=== PATIENT | female | born 1960 | race Caucasian/White ===

== ENCOUNTER 2017-08-31 10:10 | Inpatient (IN) | payer BC ==
[2017-08-31] VITALS (9 sets, daily range): BP systolic 105–131; BP diastolic 59–83
[~2017-08-31] VITALS: Ht 167.6 cm; Wt 66.2 kg
[~2017-08-31 10:10] MED LIST: NKM
--- NOTE | 2017-08-31 10:26 | Emergency Room Report ---
History of Present Illness General Chief Complaint: Generalized Weakness Source: Patient, Family Member Present Illness HPI Patient is a a 57-year-old female who presented after increased generalized weakness. Patient had been noted to have a loss of consciousness associated with some tonic-clonic motor activity. Patient had promontory dizziness and lightheadedness. Patient had been feeling hot immediately prior to passing out. Patient was noted to have recent travel from [place]. She denies any leg pain or swelling. She reports taking eyedrops for cataract surgery. She denies any recent fever. She states she was at a [employer] last night and had some alcohol. She denies prior syncopal episodes. She denies any current chest pain Allergies: Coded Allergies: No Known Allergies (Unverified , 08/31/17) Patient History Past Medical History: see triage record Reviewed Nursing Documentation: PMH: Agreed, PSxH: Agreed Nursing Documentation-PMH Past Medical History: No Stated History Review of Systems All Other Systems: negative except mentioned in HPI Physical Exam Vital Signs Date Time Temp Pulse Resp B/P (MAP) Pulse Ox O2 Delivery O2 Flow Rate FiO2 08/31/17 09:59 74 16 115/73 98 Room Air Sp02 EP Interpretation: reviewed, normal General Appearance: normal inspection, well appearing, no apparent distress, alert, GCS 15, non-toxic Head: atraumatic ENT: normal ENT inspection, hearing grossly normal, normal voice Neck: normal inspection, full range of motion, supple, no bony tend Respiratory: normal inspection, lungs clear, normal breath sounds, no respiratory distress, no retraction, no wheezing Cardiovascular #1: regular rate, rhythm, no edema Gastrointestinal: normal inspection, normal bowel sounds, non tender, soft, no guarding, no hernia Genitourinary: no CVA tenderness Musculoskeletal: normal inspection, back normal, normal range of motion Neurologic: normal inspection, alert, oriented x3, responsive, starcher and tenter range feeder III-XII nml as tested, motor strength/tone normal, speech normal, no pronator Psychiatric: normal inspection, judgement/insight normal, mood/affect normal Skin: normal inspection, normal color, no rash Medical Decision Making Diagnostic Impression: Primary Impression: Episode of generalized weakness Additional Impressions: Hyponatremia Demyelinating disease of central nervous system, unspecified ER Course Patient presented for syncope . Differential diagnosis included but not limited to syncope versus seizure. Potential causes for syncope included arrhythmia, dehydration, acute coronary syndrome, severe anemia, pulmonary embolus. Because of complexity of patient's case laboratory testing and imaging studies were ordered. Patient noted have unremarkable neurologic exam. Patient was noted to have CT the head read by radiology with questionable lesion. I laboratory testing was notable for some evidence of hyponatremia. Patient was given IV fluids.The patient stated that she felt better.The patient was noted to have evidence of multiple areas of demyelination on the MRI of the brain. Patient was noted to what sounds like a syncopal episode as the patient had no postictal interval per family member who is very reliable. a repeat Metabolic panel was ordered due to patient's previous hyponatremia. The patient was noted to have some continued hyponatremia after sodium replacement with a liter of normal saline. Sodium remained at 126. Dr. Mojica was contacted for inpatient management due to persisent hyponatremia and need for further workup and monitoring. Labs Test 08/31/17 10:10 08/31/17 10:25 D-Dimer 306 ng/mL (<500) Sodium Level 126 mEQ/L (135-145) Potassium Level 4.1 mEQ/L (3.4-4.9) Chloride Level 88 mEQ/L (98-107) Carbon Dioxide Level 25 mEQ/L (20-30) Anion Gap 13 (5-15) Blood Urea Nitrogen 11 mg/dL (7-23) Creatinine 0.7 mg/dL (0.5-0.9) Estimat Glomerular Filtration Rate > 60 mL/min (>60) Glucose Level 118 mg/dL (74-106) Calcium Level 8.9 mg/dL (8.6-10.2) Total Bilirubin 0.5 mg/dL (0.0-1.2) Aspartate Amino Transf (AST/SGOT) 19 U/L (5-40) Alanine Aminotransferase (ALT/SGPT) 21 U/L (3-33) Alkaline Phosphatase 96 U/L (35-104) Total Protein 8.2 g/dL (6.6-8.7) Albumin 4.1 g/dL (3.5-5.2) Globulin 4.1 g/dL Albumin/Globulin Ratio 1.0 (1.0-2.7) White Blood Count 3.3 K/UL (4.8-10.8) Red Blood Count 3.89 M/UL (4.20-5.40) Hemoglobin 11.7 G/DL (12.0-16.0) Hematocrit 33.9 % (37.0-47.0) Mean Corpuscular Volume 87 FL (80-99) Mean Corpuscular Hemoglobin 30.1 PG (27.0-31.0) Mean Corpuscular Hemoglobin Concent 34.5 G/DL (32.0-36.0) Red Cell Distribution Width 10.8 % (11.6-14.8) Platelet Count 335 K/UL (150-450) Mean Platelet Volume 4.1 FL (6.5-10.1) Neutrophils (%) (Auto) % (45.0-75.0) Lymphocytes (%) (Auto) % (20.0-45.0) Monocytes (%) (Auto) % (1.0-10.0) Eosinophils (%) (Auto) % (0.0-3.0) Basophils (%) (Auto) % (0.0-2.0) Differential Total Cells Counted 100 Neutrophils % (Manual) 51 % (45-75) Lymphocytes % (Manual) 38 % (20-45) Monocytes % (Manual) 11 % (1-10) Eosinophils % (Manual) 0 % (0-3) Basophils % (Manual) 0 % (0-2) Band Neutrophils 0 % (0-8) Platelet Estimate Adequate Platelet Morphology Normal Red Blood Cell Morphology Normal Prothrombin Time 9.9 SEC (9.30-11.50) Prothromb Time International Ratio 0.9 (0.9-1.1) Activated Partial Thromboplast Time 25 SEC (23-33) Troponin I 0.000 ng/mL (0.000-0.056) EKG Diagnostic Results Rate: normal Rhythm: NSR ST Segments: no acute changes Rhythm Strip Diag. Results EP Interpretation: yes Rhythm: NSR, no PVC's, no ectopy Last Vital Signs Date Time Temp Pulse Resp B/P (MAP) Pulse Ox O2 Delivery O2 Flow Rate FiO2 08/31/17 10:05 66 16 110/65 98 Room Air Status: unchanged Disposition: ADMITTED INPATIENT Condition: Stable Az Smith Aug 31, 2017 10:25
[2017-08-31 10:40] LABS: MEAN CORPUSCULAR HEMOGLOBIN 30.1 PG (27.0-31.0); MEAN CORPUSCULAR HGB CONC 34.5 G/DL (32.0-36.0); MEAN CORPUSCULAR VOLUME 87 FL (80-99); MEAN PLATELET VOLUME 4.1 FL (6.5-10.1); PLATELET COUNT 335 K/UL (150-450); RED BLOOD COUNT 3.89 M/UL (4.20-5.40); RED CELL DISTRIBUTION WIDTH 10.8 % (11.6-14.8); WHITE BLOOD COUNT 3.3 K/UL (4.8-10.8)
[2017-08-31 10:48] LABS: INR 0.9 (0.9-1.1); PROTHROMBIN TIME 9.9 SEC (9.30-11.50)
--- NOTE | 2017-08-31 10:52 | Diagnostic Imaging Report ---
Indication: Altered mental status Technique: Continuous helical CT scanning of the head was performed utilizing automated exposure control without intravenous contrast material. Axial and coronal reconstructions were obtained. Comparison: None CT dose: Total DLP 1378 mGycm; CTDI vol 70.4 mGy Findings: There is no acute intracranial hemorrhage, mass effect or cortical edema. The ventricles, cisterns and sulci are within normal limits. Mild periventricular and subcortical hypoattenuation are seen, a nonspecific finding. There is a questionable 5 mm hypodensity within the right midbrain series 3 image 10. Sellar and suprasellar regions are grossly unremarkable. There is mild mucosal left sphenoid thickening. Mastoid air cells are clear. No focal lesions of the bony calvarium or soft tissues of the scalp are seen. Impression: No evidence of acute intracranial hemorrhage, mass effect or cortical edema. MRI may be obtained for more sensitive evaluation as clinically indicated. Mild nonspecific periventricular and subcortical hypoattenuation. Findings could represent chronic ischemic microvascular changes. Other etiologies not completely excluded. Clinical correlation recommended. Questionable 5 mm hypodensity within the right midbrain series 3 image 10. Possibility of acuity indeterminate lacunar infarct not excluded. Clinical correlation recommended. The CT scanner at [facility] is accredited by the [employer] and the scans are performed using protocols designed to limit radiation exposure to as low as reasonably achievable to attain images of sufficient resolution adequate for diagnostic evaluation.
[2017-08-31 10:58] LABS: ALANINE AMINOTRANSFERASE 21 U/L (3-33); ANION GAP 13 (5-15); ASPARTATE AMINO TRANSFERASE 19 U/L (5-40); CALCIUM 8.9 mg/dL (8.6-10.2); CARBON DIOXIDE 25 mEQ/L (20-30); CHLORIDE 88 mEQ/L (98-107); CREATININE 0.7 mg/dL (0.5-0.9); GLOMERULAR FILTRATION RATE > 60 mL/min (>60); HEMOLYSIS 4; POTASSIUM 4.1 mEQ/L (3.4-4.9); SODIUM 126 mEQ/L (135-145); TOTAL PROTEIN 8.2 g/dL (6.6-8.7)
[2017-08-31 11:24] LABS: BAND NEUTROPHILS % (MANUAL) 0 % (0-8); BASOPHILS % (MANUAL) 0 % (0-2); EOSINOPHILS % (MANUAL) 0 % (0-3); LYMPHOCYTES % (MANUAL) 38 % (20-45); NEUTROPHILS % (MANUAL) 51 % (45-75); PLATELET ESTIMATE ADEQUATE; PLATELET MORPHOLOGY NORMAL; TOTAL CELLS COUNTED 100
[2017-08-31 12:59] LABS: APPEARANCE,URINE CLEAR; KETONES,URINE 1+ (NEGATIVE); LEUKOCYTE ESTERASE ,URINE NEGATIVE (NEGATIVE); NITRITE,URINE NEGATIVE (NEGATIVE); PH,URINE 7 (4.5-8.0); PROTEIN,URINE NEGATIVE (NEGATIVE); UROBILINOGEN,URINE NORMAL MG/DL (0.0-1.0)
[2017-08-31 13:11] LABS: BACTERIA,URINE OCCASIONAL /HPF; RBC,URINE 0-2 /HPF (0 - 2); SQUAMOUS EPITHELIAL CELL,UR OCCASIONAL /LPF (NONE/OCC); WBC,URINE 0-2 /HPF (0 - 2)
[2017-08-31 15:41] LABS: ALANINE AMINOTRANSFERASE 20 U/L (3-33); ALBUMIN/GLOBULIN RATIO 0.9 (1.0-2.7); ANION GAP 15 (5-15); ASPARTATE AMINO TRANSFERASE 20 U/L (5-40); CALCIUM 8.9 mg/dL (8.6-10.2); CARBON DIOXIDE 21 mEQ/L (20-30); CHLORIDE 90 mEQ/L (98-107); CREATININE 0.5 mg/dL (0.5-0.9); GLOMERULAR FILTRATION RATE > 60 mL/min (>60); HEMOLYSIS 20; POTASSIUM 4.3 mEQ/L (3.4-4.9); SODIUM 126 mEQ/L (135-145)
--- NOTE | 2017-08-31 17:42 | Neurology Progress Note ---
Objective Physical Exam Last Vital Signs Date Time Temp Pulse Resp B/P (MAP) Pulse Ox O2 Delivery O2 Flow Rate FiO2 08/31/17 15:42 72 13 131/71 98 Room Air 08/31/17 13:47 97.6 Laboratory Tests Test 08/31/17 10:10 08/31/17 10:25 08/31/17 12:35 08/31/17 15:10 D-Dimer 306 ng/mL (<500) Sodium Level 126 mEQ/L (135-145) L 126 mEQ/L (135-145) L Potassium Level 4.1 mEQ/L (3.4-4.9) 4.3 mEQ/L (3.4-4.9) Chloride Level 88 mEQ/L (98-107) L 90 mEQ/L (98-107) L Carbon Dioxide Level 25 mEQ/L (20-30) 21 mEQ/L (20-30) Anion Gap 13 (5-15) 15 (5-15) Blood Urea Nitrogen 11 mg/dL (7-23) 8 mg/dL (7-23) Creatinine 0.7 mg/dL (0.5-0.9) 0.5 mg/dL (0.5-0.9) Estimat Glomerular Filtration Rate > 60 mL/min (>60) > 60 mL/min (>60) Glucose Level 118 mg/dL (74-106) H 93 mg/dL (74-106) Calcium Level 8.9 mg/dL (8.6-10.2) 8.9 mg/dL (8.6-10.2) Total Bilirubin 0.5 mg/dL (0.0-1.2) 0.3 mg/dL (0.0-1.2) Aspartate Amino Transf (AST/SGOT) 19 U/L (5-40) 20 U/L (5-40) Alanine Aminotransferase (ALT/SGPT) 21 U/L (3-33) 20 U/L (3-33) Alkaline Phosphatase 96 U/L (35-104) 92 U/L (35-104) Total Protein 8.2 g/dL (6.6-8.7) 8.0 g/dL (6.6-8.7) Albumin 4.1 g/dL (3.5-5.2) 3.9 g/dL (3.5-5.2) Globulin 4.1 g/dL 4.1 g/dL Albumin/Globulin Ratio 1.0 (1.0-2.7) 0.9 (1.0-2.7) L White Blood Count 3.3 K/UL (4.8-10.8) L Red Blood Count 3.89 M/UL (4.20-5.40) L Hemoglobin 11.7 G/DL (12.0-16.0) L Hematocrit 33.9 % (37.0-47.0) L Mean Corpuscular Volume 87 FL (80-99) Mean Corpuscular Hemoglobin 30.1 PG (27.0-31.0) Mean Corpuscular Hemoglobin Concent 34.5 G/DL (32.0-36.0) Red Cell Distribution Width 10.8 % (11.6-14.8) L Platelet Count 335 K/UL (150-450) Mean Platelet Volume 4.1 FL (6.5-10.1) L Neutrophils (%) (Auto) % (45.0-75.0) Lymphocytes (%) (Auto) % (20.0-45.0) Monocytes (%) (Auto) % (1.0-10.0) Eosinophils (%) (Auto) % (0.0-3.0) Basophils (%) (Auto) % (0.0-2.0) Differential Total Cells Counted 100 Neutrophils % (Manual) 51 % (45-75) Lymphocytes % (Manual) 38 % (20-45) Monocytes % (Manual) 11 % (1-10) H Eosinophils % (Manual) 0 % (0-3) Basophils % (Manual) 0 % (0-2) Band Neutrophils 0 % (0-8) Platelet Estimate Adequate Platelet Morphology Normal Red Blood Cell Morphology Normal Prothrombin Time 9.9 SEC (9.30-11.50) Prothromb Time International Ratio 0.9 (0.9-1.1) Activated Partial Thromboplast Time 25 SEC (23-33) Troponin I 0.000 ng/mL (0.000-0.056) Urine Color Pale yellow Urine Appearance Clear Urine pH 7 (4.5-8.0) Urine Specific [place] 1.010 (1.005-1.035) Urine Protein Negative (NEGATIVE) Urine Glucose (UA) Negative (NEGATIVE) Urine Ketones 1+ (NEGATIVE) H Urine Occult Blood Negative (NEGATIVE) Urine Nitrite Negative (NEGATIVE) Urine Bilirubin Negative (NEGATIVE) Urine Urobilinogen Normal MG/DL (0.0-1.0) Urine Leukocyte Esterase Negative (NEGATIVE) Urine RBC 0-2 /HPF (0 - 2) Urine WBC 0-2 /HPF (0 - 2) Urine Squamous Epithelial Cells Occasional /LPF Urine Bacteria Occasional /HPF (NONE) Urine Random Sodium 69 mmol/L Urine Opiates Screen Negative (NEGATIVE) Urine Barbiturates Screen Negative (NEGATIVE) Phencyclidine (PCP) Screen Negative (NEGATIVE) Urine Amphetamines Screen Negative (NEGATIVE) Urine Benzodiazepines Screen Negative (NEGATIVE) Urine Cocaine Screen Negative (NEGATIVE) Urine Marijuana (THC) Screen Negative (NEGATIVE) Impression/Recommendations Problems: (1) syncope vaso vagal,with brief epileptic transient. (2) Hyponatremia (3) Demyelinating disease of central nervous system, unspecified Status: stable Recommendations # [id number] BRANDIE HOSKINS Aug 31, 2017 17:41
[2017-08-31] MEDS ORDERED: PRED FORTE1 ML OP (18:22)
--- NOTE | 2017-08-31 19:51 | Cardiology Progress Note ---
Assessment/Plan Assessment/Plan The patient is seen and examined, full consult note will be dictated. Objective Last 24 Hour Vital Signs Date Time Temp Pulse Resp B/P (MAP) Pulse Ox O2 Delivery O2 Flow Rate FiO2 08/31/17 18:22 97.6 77 13 105/83 100 Room Air 08/31/17 18:18 77 13 105/83 100 Room Air 08/31/17 15:42 72 13 131/71 98 Room Air 08/31/17 13:47 97.6 74 13 119/66 98 Room Air 08/31/17 12:40 72 16 116/64 99 Room Air 08/31/17 11:46 74 16 116/65 99 Room Air 08/31/17 11:45 74 16 116/65 99 Room Air 08/31/17 11:45 80 16 121/71 100 Room Air 08/31/17 11:44 72 16 112/59 100 Room Air 08/31/17 10:05 66 16 110/65 98 Room Air 08/31/17 09:59 74 16 115/73 98 Room Air Intake and Output 08/31/17 09/01/17 19:00 07:00 Intake Total 1000 ml Balance 1000 ml Intake Oral 0 ml IV Total 1000 ml Laboratory Tests Test 08/31/17 10:10 08/31/17 10:25 08/31/17 12:35 08/31/17 15:10 D-Dimer 306 ng/mL (<500) Sodium Level 126 mEQ/L (135-145) L 126 mEQ/L (135-145) L Potassium Level 4.1 mEQ/L (3.4-4.9) 4.3 mEQ/L (3.4-4.9) Chloride Level 88 mEQ/L (98-107) L 90 mEQ/L (98-107) L Carbon Dioxide Level 25 mEQ/L (20-30) 21 mEQ/L (20-30) Anion Gap 13 (5-15) 15 (5-15) Blood Urea Nitrogen 11 mg/dL (7-23) 8 mg/dL (7-23) Creatinine 0.7 mg/dL (0.5-0.9) 0.5 mg/dL (0.5-0.9) Estimat Glomerular Filtration Rate > 60 mL/min (>60) > 60 mL/min (>60) Glucose Level 118 mg/dL (74-106) H 93 mg/dL (74-106) Calcium Level 8.9 mg/dL (8.6-10.2) 8.9 mg/dL (8.6-10.2) Total Bilirubin 0.5 mg/dL (0.0-1.2) 0.3 mg/dL (0.0-1.2) Aspartate Amino Transf (AST/SGOT) 19 U/L (5-40) 20 U/L (5-40) Alanine Aminotransferase (ALT/SGPT) 21 U/L (3-33) 20 U/L (3-33) Alkaline Phosphatase 96 U/L (35-104) 92 U/L (35-104) Total Protein 8.2 g/dL (6.6-8.7) 8.0 g/dL (6.6-8.7) Albumin 4.1 g/dL (3.5-5.2) 3.9 g/dL (3.5-5.2) Globulin 4.1 g/dL 4.1 g/dL Albumin/Globulin Ratio 1.0 (1.0-2.7) 0.9 (1.0-2.7) L White Blood Count 3.3 K/UL (4.8-10.8) L Red Blood Count 3.89 M/UL (4.20-5.40) L Hemoglobin 11.7 G/DL (12.0-16.0) L Hematocrit 33.9 % (37.0-47.0) L Mean Corpuscular Volume 87 FL (80-99) Mean Corpuscular Hemoglobin 30.1 PG (27.0-31.0) Mean Corpuscular Hemoglobin Concent 34.5 G/DL (32.0-36.0) Red Cell Distribution Width 10.8 % (11.6-14.8) L Platelet Count 335 K/UL (150-450) Mean Platelet Volume 4.1 FL (6.5-10.1) L Neutrophils (%) (Auto) % (45.0-75.0) Lymphocytes (%) (Auto) % (20.0-45.0) Monocytes (%) (Auto) % (1.0-10.0) Eosinophils (%) (Auto) % (0.0-3.0) Basophils (%) (Auto) % (0.0-2.0) Differential Total Cells Counted 100 Neutrophils % (Manual) 51 % (45-75) Lymphocytes % (Manual) 38 % (20-45) Monocytes % (Manual) 11 % (1-10) H Eosinophils % (Manual) 0 % (0-3) Basophils % (Manual) 0 % (0-2) Band Neutrophils 0 % (0-8) Platelet Estimate Adequate Platelet Morphology Normal Red Blood Cell Morphology Normal Prothrombin Time 9.9 SEC (9.30-11.50) Prothromb Time International Ratio 0.9 (0.9-1.1) Activated Partial Thromboplast Time 25 SEC (23-33) Troponin I 0.000 ng/mL (0.000-0.056) Urine Color Pale yellow Urine Appearance Clear Urine pH 7 (4.5-8.0) Urine Specific [place] 1.010 (1.005-1.035) Urine Protein Negative (NEGATIVE) Urine Glucose (UA) Negative (NEGATIVE) Urine Ketones 1+ (NEGATIVE) H Urine Occult Blood Negative (NEGATIVE) Urine Nitrite Negative (NEGATIVE) Urine Bilirubin Negative (NEGATIVE) Urine Urobilinogen Normal MG/DL (0.0-1.0) Urine Leukocyte Esterase Negative (NEGATIVE) Urine RBC 0-2 /HPF (0 - 2) Urine WBC 0-2 /HPF (0 - 2) Urine Squamous Epithelial Cells Occasional /LPF Urine Bacteria Occasional /HPF (NONE) Urine Random Sodium 69 mmol/L Urine Opiates Screen Negative (NEGATIVE) Urine Barbiturates Screen Negative (NEGATIVE) Phencyclidine (PCP) Screen Negative (NEGATIVE) Urine Amphetamines Screen Negative (NEGATIVE) Urine Benzodiazepines Screen Negative (NEGATIVE) Urine Cocaine Screen Negative (NEGATIVE) Urine Marijuana (THC) Screen Negative (NEGATIVE) CHARLIE COVARRUBIAS Aug 31, 2017 19:51
[2017-08-31] MEDS ORDERED: LORazepam Inj 2mg/ml 1ml IV PRN (20:30)
[2017-08-31] MEDS: Heparin 5000 units/ml inj SUBQ SCH (21:00)
[2017-09-01] VITALS: BP 137/75
[2017-09-01 07:55] VITALS: BP 124/72
[2017-09-01 08:02] LABS: HEMOGLOBIN A1C 5.1 % (< 6.0)
[2017-09-01 08:04] LABS: MEAN CORPUSCULAR HEMOGLOBIN 29.8 PG (27.0-31.0); MEAN CORPUSCULAR VOLUME 88 FL (80-99); MEAN PLATELET VOLUME 4.5 FL (6.5-10.1); PLATELET COUNT 344 K/UL (150-450); RED BLOOD COUNT 4.08 M/UL (4.20-5.40); RED CELL DISTRIBUTION WIDTH 10.7 % (11.6-14.8); WHITE BLOOD COUNT 2.7 K/UL (4.8-10.8)
[2017-09-01 08:16] LABS: ALANINE AMINOTRANSFERASE 20 U/L (3-33); ALBUMIN/GLOBULIN RATIO 0.9 (1.0-2.7); ANION GAP 13 (5-15); ASPARTATE AMINO TRANSFERASE 21 U/L (5-40); CARBON DIOXIDE 25 mEQ/L (20-30); CHLORIDE 94 mEQ/L (98-107); CHOLESTEROL 203 mg/dL (< 200); CHOLESTEROL/HDL RATIO 1.9 (3.3-4.4); CREATININE 0.6 mg/dL (0.5-0.9); GLOMERULAR FILTRATION RATE > 60 mL/min (>60); HEMOLYSIS 4; POTASSIUM 4.4 mEQ/L (3.4-4.9); SODIUM 132 mEQ/L (135-145); TOTAL PROTEIN 8.3 g/dL (6.6-8.7)
--- NOTE | 2017-09-01 08:43 | History & Physical ---
History and Physical History & Physicial seen and examined. dictation completed Miguel Mojica MD Sep 01, 2017 08:43
--- NOTE | 2017-09-01 08:46 | General Progress Note ---
Assessment/Plan Status: stable Assessment/Plan 1- Acute encephalopathy with bebe flexibility of upper extremities: possiblity of sz cant be excluded 2- Hypo Natremia 3- Leukopenia Plan: Full Dictaion in progress Neuro, Cardio consulted Echo pending Will check HIV, LDH, iron panel, Vit B 12, MMA,ESR, Electrophoresis Subjective ROS Limited/Unobtainable: No Constitutional: Reports: no symptoms HEENT: Reports: no symptoms Cardiovascular: Reports: no symptoms Respiratory: Reports: no symptoms Allergies: Coded Allergies: No Known Allergies (Unverified , 08/31/17) Objective Last 24 Hour Vital Signs Date Time Temp Pulse Resp B/P (MAP) Pulse Ox O2 Delivery O2 Flow Rate FiO2 09/01/17 07:55 97.6 88 18 124/72 98 Room Air 09/01/17 04:00 69 09/01/17 00:00 69 09/01/17 00:00 97.6 72 18 137/75 97 Room Air 08/31/17 20:00 97.6 72 16 127/61 97 Room Air 08/31/17 20:00 72 08/31/17 18:22 97.6 77 13 105/83 100 Room Air 08/31/17 18:18 77 13 105/83 100 Room Air 08/31/17 15:42 72 13 131/71 98 Room Air 08/31/17 13:47 97.6 74 13 119/66 98 Room Air 08/31/17 12:40 72 16 116/64 99 Room Air 08/31/17 11:46 74 16 116/65 99 Room Air 08/31/17 11:45 74 16 116/65 99 Room Air 08/31/17 11:45 80 16 121/71 100 Room Air 08/31/17 11:44 72 16 112/59 100 Room Air 08/31/17 10:05 66 16 110/65 98 Room Air 08/31/17 09:59 74 16 115/73 98 Room Air Laboratory Tests 08/31/17 10:10: D-Dimer 306, Sodium Level 126L, Potassium Level 4.1, Chloride Level 88L, Carbon Dioxide Level 25, Anion Gap 13, Blood Urea Nitrogen 11, Creatinine 0.7, Estimat Glomerular Filtration Rate > 60, Glucose Level 118H, Calcium Level 8.9, Total Bilirubin 0.5, Aspartate Amino Transf (AST/SGOT) 19, Alanine Aminotransferase ( ALT/SGPT) 21, Alkaline Phosphatase 96, Total Protein 8.2, Albumin 4.1, Globulin 4.1, Albumin/Globulin Ratio 1.0 08/31/17 10:25: White Blood Count 3.3L, Red Blood Count 3.89L, Hemoglobin 11.7L, Hematocrit 33.9L, Mean Corpuscular Volume 87, Mean Corpuscular Hemoglobin 30.1, Mean Corpuscular Hemoglobin Concent 34.5, Red Cell Distribution Width 10.8L, Platelet Count 335, Mean Platelet Volume 4.1L, Neutrophils (%) (Auto) , Lymphocytes (%) (Auto) , Monocytes (%) (Auto) , Eosinophils (%) (Auto) , Basophils (%) (Auto) , Differential Total Cells Counted 100, Neutrophils % ( Manual) 51, Lymphocytes % (Manual) 38, Monocytes % (Manual) 11H, Eosinophils % ( Manual) 0, Basophils % (Manual) 0, Band Neutrophils 0, Platelet Estimate Adequate, Platelet Morphology Normal, Red Blood Cell Morphology Normal, Prothrombin Time 9.9, Prothromb Time International Ratio 0.9, Activated Partial Thromboplast Time 25, Troponin I 0.000 08/31/17 12:35: Urine Color Pale yellow, Urine Appearance Clear, Urine pH 7, Urine Specific [place] 1.010, Urine Protein Negative, Urine Glucose (UA) Negative, Urine Ketones 1+H, Urine Occult Blood Negative, Urine Nitrite Negative, Urine Bilirubin Negative, Urine Urobilinogen Normal, Urine Leukocyte Esterase Negative , Urine RBC 0-2, Urine WBC 0-2, Urine Squamous Epithelial Cells Occasional, Urine Bacteria Occasional, Urine Random Sodium 69, Urine Opiates Screen Negative , Urine Barbiturates Screen Negative, Phencyclidine (PCP) Screen Negative, Urine Amphetamines Screen Negative, Urine Benzodiazepines Screen Negative, Urine Cocaine Screen Negative, Urine Marijuana (THC) Screen Negative 08/31/17 15:10: Sodium Level 126L, Potassium Level 4.3, Chloride Level 90L, Carbon Dioxide Level 21, Anion Gap 15, Blood Urea Nitrogen 8, Creatinine 0.5, Estimat Glomerular Filtration Rate > 60, Glucose Level 93, Calcium Level 8.9, Total Bilirubin 0.3, Aspartate Amino Transf (AST/SGOT) 20, Alanine Aminotransferase ( ALT/SGPT) 20, Alkaline Phosphatase 92, Total Protein 8.0, Albumin 3.9, Globulin 4.1, Albumin/Globulin Ratio 0.9L 09/01/17 05:45: White Blood Count 2.7L, Red Blood Count 4.08L, Hemoglobin 12.1, Hematocrit 35.7L , Mean Corpuscular Volume 88, Mean Corpuscular Hemoglobin 29.8, Mean Corpuscular Hemoglobin Concent 34.0, Red Cell Distribution Width 10.7L, Platelet Count 344, Mean Platelet Volume 4.5L, Neutrophils (%) (Auto) , Lymphocytes (%) (Auto) , Monocytes (%) (Auto) , Eosinophils (%) (Auto) , Basophils (%) (Auto) , Neutrophils % (Manual) [Pending], Lymphocytes % (Manual) [Pending], Platelet Estimate [Pending], Platelet Morphology [Pending], Sodium Level 132L, Potassium Level 4.4, Chloride Level 94L, Carbon Dioxide Level 25, Anion Gap 13, Blood Urea Nitrogen 6L, Creatinine 0.6, Estimat Glomerular Filtration Rate > 60, Glucose Level 90, Hemoglobin A1c 5.1, Calcium Level 9.0, Total Bilirubin 0.4, Aspartate Amino Transf (AST/SGOT) 21, Alanine Aminotransferase (ALT/SGPT) 20, Alkaline Phosphatase 96, Total Protein 8.3, Albumin 4.0, Globulin 4.3, Albumin/Globulin Ratio 0.9L, Triglycerides Level 79, Cholesterol Level 203H, LDL Cholesterol 78.200, HDL Cholesterol 109H, Cholesterol/HDL Ratio 1.9L Height (Feet): 5 Height (Inches): 6.00 Weight (Pounds): 140 General Appearance: WD/WN EENT: PERRL/EOMI Neck: supple Cardiovascular: normal rate Respiratory/Chest: lungs clear Abdomen: soft Extremities: non-tender Neurologic: motor vehicle license clerk II-XII grossly normal Miguel Mojica MD Sep 01, 2017 08:46
--- NOTE | 2017-09-01 10:13 | Diagnostic Imaging Report ---
Indication: Syncope Technique: MRI the brain performed utilizing T1 sagittal, T2 axial, T1 FLAIR axial, T2 FLAIR axial, GRE and diffusion axial images without gadolinium. Axial and coronal T1-weighted images were obtained after gadolinium infusion. Findings: There is no abnormal diffusion restriction or abnormal postcontrast enhancement. The ventricles, sulci and cisterns are within normal limits for age. Mild to moderate periventricular and subcortical T2 lesions are seen with some directed perpendicular to the corpus callosum. There is involvement of the left temporal lobe and some of the lesions appear to abut subcortical U fibers. No acute hemorrhage is identified. The fourth ventricle and posterior fossa are unremarkable. The sella is grossly unremarkable. Left sphenoid sinusitis is present. 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 Impression: No acute intracranial abnormality or abnormal post gadolinium enhancement. Mild to moderate periventricular and subcortical T2 signal. Some of the lesions appear perpendicular to the corpus callosum and some of the lesions extend to the subcortical U fibers. Possibility of demyelinating disease such as multiple sclerosis should be considered. Some of the findings may also be on the basis of chronic ischemic microvascular changes. Clinical correlation recommended. Further evaluation recommended as indicated.
[2017-09-01] MEDS: Heparin 5000 units/ml inj SUBQ SCH ×2 (10:26→21:20)
[2017-09-01 11:52] VITALS: BP 125/72
[2017-09-01 12:01] LABS: BAND NEUTROPHILS % (MANUAL) 0 % (0-8); BASOPHILS % (MANUAL) 1 % (0-2); EOSINOPHILS % (MANUAL) 0 % (0-3); LYMPHOCYTES % (MANUAL) 57 % (20-45); NEUTROPHILS % (MANUAL) 33 % (45-75); PLATELET ESTIMATE ADEQUATE; PLATELET MORPHOLOGY NORMAL; TOTAL CELLS COUNTED 100
[2017-09-01 16:00] VITALS: BP 130/72
[2017-09-01 20:57] VITALS: BP 139/94
--- NOTE | 2017-09-01 23:25 | Cardiology Progress Note ---
Assessment/Plan Assessment/Plan 1. Pre-syncope/syncope, likely hypovolemia in view of hyponatremia which responded to IVF. Echo shows normal LVEF, no e/o cardiac arrhythmias so far. Continue oral hydration. 2. Leukopenia with relative lymphocytosis, ?viral disease. Subjective Subjective Sinus rhythm at 74. Orthostatics after ~3 liters of IV fluid is normal. Objective Last 24 Hour Vital Signs Date Time Temp Pulse Resp B/P (MAP) Pulse Ox O2 Delivery O2 Flow Rate FiO2 09/01/17 21:01 77 76 84 09/01/17 20:57 97.6 76 18 139/94 96 Room Air 09/01/17 20:00 76 09/01/17 16:10 88 09/01/17 16:05 77 09/01/17 16:00 81 09/01/17 16:00 97.7 79 18 130/72 96 Room Air 09/01/17 16:00 79 09/01/17 12:00 81 09/01/17 11:52 97.7 79 18 125/72 98 Room Air 09/01/17 08:00 81 09/01/17 07:55 97.6 88 18 124/72 98 Room Air 09/01/17 04:00 69 09/01/17 00:00 69 09/01/17 00:00 97.6 72 18 137/75 97 Room Air Intake and Output 09/01/17 09/02/17 19:00 07:00 Intake Total 360 ml Balance 360 ml Intake Oral 360 ml # Voids 2 2D Echo: LVEF 55-60%, No other abnormalities. Laboratory Tests Test 09/01/17 05:45 White Blood Count 2.7 K/UL (4.8-10.8) L Red Blood Count 4.08 M/UL (4.20-5.40) L Hemoglobin 12.1 G/DL (12.0-16.0) Hematocrit 35.7 % (37.0-47.0) L Mean Corpuscular Volume 88 FL (80-99) Mean Corpuscular Hemoglobin 29.8 PG (27.0-31.0) Mean Corpuscular Hemoglobin Concent 34.0 G/DL (32.0-36.0) Red Cell Distribution Width 10.7 % (11.6-14.8) L Platelet Count 344 K/UL (150-450) Mean Platelet Volume 4.5 FL (6.5-10.1) L Neutrophils (%) (Auto) % (45.0-75.0) Lymphocytes (%) (Auto) % (20.0-45.0) Monocytes (%) (Auto) % (1.0-10.0) Eosinophils (%) (Auto) % (0.0-3.0) Basophils (%) (Auto) % (0.0-2.0) Differential Total Cells Counted 100 Neutrophils % (Manual) 33 % (45-75) L Lymphocytes % (Manual) 57 % (20-45) H Monocytes % (Manual) 9 % (1-10) Eosinophils % (Manual) 0 % (0-3) Basophils % (Manual) 1 % (0-2) Band Neutrophils 0 % (0-8) Platelet Estimate Adequate Platelet Morphology Normal Red Blood Cell Morphology Normal Erythrocyte Sedimentation Rate 19 MM/HR (0-30) Sodium Level 132 mEQ/L (135-145) L Potassium Level 4.4 mEQ/L (3.4-4.9) Chloride Level 94 mEQ/L (98-107) L Carbon Dioxide Level 25 mEQ/L (20-30) Anion Gap 13 (5-15) Blood Urea Nitrogen 6 mg/dL (7-23) L Creatinine 0.6 mg/dL (0.5-0.9) Estimat Glomerular Filtration Rate > 60 mL/min (>60) Glucose Level 90 mg/dL (74-106) Hemoglobin A1c 5.1 % (< 6.0) Calcium Level 9.0 mg/dL (8.6-10.2) Total Bilirubin 0.4 mg/dL (0.0-1.2) Aspartate Amino Transf (AST/SGOT) 21 U/L (5-40) Alanine Aminotransferase (ALT/SGPT) 20 U/L (3-33) Alkaline Phosphatase 96 U/L (35-104) Lactate Dehydrogenase 169 U/L (135-230) Total Protein 8.3 g/dL (6.6-8.7) Albumin 4.0 g/dL (3.5-5.2) Globulin 4.3 g/dL Albumin/Globulin Ratio 0.9 (1.0-2.7) L Triglycerides Level 79 mg/dL (< 150) Cholesterol Level 203 mg/dL (< 200) H LDL Cholesterol 78.200 mg/dL (< 100) HDL Cholesterol 109 mg/dL (> 60) H Cholesterol/HDL Ratio 1.9 (3.3-4.4) L HIV (1&2) Antibody Rapid Pending Objective HEENT: Atraumatic, normocephalic, PERRLA, EOMI Neck: No JVD, no carotid bruit, carotid upstroke 2+ B/L Cardiovascular: Regular rate, rhythm, normal S1S2, no murmurs, gallops or rubs. Respiratory/Chest: lungs clear Abdomen: soft, non-tender, non-distended, no HSM, normal BS Extremities: no edema, clubbing or cyanosis. CHARLIE COVARRUBIAS Sep 01, 2017 23:25
[2017-09-02] VITALS: BP 144/76
--- NOTE | 2017-09-02 03:39 | History and Physical Report ---
DATE OF ADMISSION: 08/31/2017 SOURCE OF INFORMATION: The patient and EMR. HISTORY OF PRESENT ILLNESS: The patient is a 57-year-old female with unremarkable past medical history. She has reportedly had a brief episode of lightheadedness with no concrete reported total loss of consciousness. Episode occurred in the mall in the [employer] outboard. It was reported that was very hot, witnessed by her . There is no unusual reported activity of twitching movements of the upper extremity witnessed by . No episodes of loss of control over the urination or bowel movements was reported. No episode of bleeding. No episodes of hitting the head or trauma to the any part of the body is reported. PAST SURGICAL HISTORY: Eye surgery, otherwise denies. SOCIAL HISTORY: The patient has two children. The patient leaves in [place] and is here for the vacation. The patient denies any illicit drug abuse, smoking, or alcohol abuse. The patient is . FAMILY HISTORY: Reviewed, noncontributory. ALLERGIES: NKDA. PHYSICAL EXAMINATION: VITAL SIGNS: Blood pressure 110/50, temperature 98.2, pulse oximetry 98% on room air, pulse rate 70 to 75, and respiratory rate 18. HEENT: Head and neck, atraumatic and normocephalic. CHEST: Clear to auscultation. HEART: S1 and S2. Regular rate and rhythm. ABDOMEN: Soft. No organomegaly. MUSCULOSKELETAL: No gross focal motor deficit. NEUROLOGY: Awake, alert, and oriented x3. LABORATORY DATA: Labs dated 08/31/2017 shows WBC 3.3, hemoglobin 11.7, and platelets are 337,000. Sodium of 126, potassium 4.1, BUN 11, and glucose 118. Urine drug screen is negative. ASSESSMENT: 1. Acute encephalopathy with possible upper extremity hyper-rigidity dysconfiguration movement. Possibility of seizure activity cannot be excluded. 2. Leukopenia. 3. Anemia. 4. Hyponatremia. 5. Gastrointestinal and deep vein thrombosis prophylaxes. PLAN OF CARE: I will initiate the patient to continue to tele monitor. We will check the echo and carotid duplex. Cardiology and Neurology services have been consulted. We will also check the iron panel. We would continue with the hold on the intravenous fluids. We will continue with current management. Miguel Mojica M.D. DR: KEI JOB#: [id number] CC:
[2017-09-02 04:16] VITALS: BP 116/78
[2017-09-02 07:51] LABS: MEAN CORPUSCULAR HEMOGLOBIN 30.5 PG (27.0-31.0); MEAN CORPUSCULAR VOLUME 87 FL (80-99); MEAN PLATELET VOLUME 4.1 FL (6.5-10.1); PLATELET COUNT 342 K/UL (150-450); RED BLOOD COUNT 4.14 M/UL (4.20-5.40); RED CELL DISTRIBUTION WIDTH 10.9 % (11.6-14.8); WHITE BLOOD COUNT 3.2 K/UL (4.8-10.8)
[2017-09-02 08:00] VITALS: BP 131/58
--- NOTE | 2017-09-02 08:24 | Cardiology Report ---
APPROVED REPORT EXAM: Two-dimensional and M-mode echocardiogram with Doppler and color Doppler. INDICATION Syncope M-Mode DIMENSIONS IVSd0.7 (0.7-1.1cm)Left Atrium (MM)2.4 (1.6-4.0cm) LVDd4.7 (3.5-5.6cm)Aortic Root2.6 (2.0-3.7cm) PWd0.7 (0.7-1.1cm)Aortic Cusp Exc.2.0 (1.5-2.0cm) LVDs3.0 (2.5-4.0cm) PWs0.7 cm Normal left ventricular chamber size, systolic function and wall motion. Left ventricular ejection fraction estimated to be 55-60 %. No evidence of left ventricular hypertrophy. No evidence of pericardial or pleural effusion. All other cardiac chamber sizes are within normal limits. Focal aortic valve sclerosis with adequate cusp excursion. Thickened mitral valve leaflets with normal excursion. Mild mitral annulus and aortic root calcification. Pulmonic valve not well visualized. Normal tricuspid valve structure. IVC is normal in size and collapsible with respiration. A color flow and spectral Doppler study was performed and revealed: No aortic regurgitation. No mitral regurgitation. Normal mitral diastolic function. No tricuspid regurgitation.
[2017-09-02] MEDS: Heparin 5000 units/ml inj SUBQ SCH ×2 (09:00→22:45)
--- NOTE | 2017-09-02 09:02 | Consultation ---
DATE OF CONSULTATION: 08/31/2017 CARDIOLOGY CONSULTATION REFERRING PHYSICIAN: Miguel Mojica M.D. REASON FOR CONSULTATION: Management of syncope/presyncope. HISTORY OF PRESENT ILLNESS: The patient is a very pleasant 57-year-old female, who is visiting [place] from [place], [place]. She was in her usual state of health until 08/31/2017 while she was with her and she felt, dizzy, lightheaded, and she broke out into a cold sweat. She states that she was very conscious about the holy bath and she was in the street and decided to lie down on the ground. At the time that she was making attempt to obtain a supine position, her noticed some tonic-clonic stiffness. The patient claims that she did not lose consciousness, but according to her she was sweating pale. She has not had similar episodes in the past and this is the first time that she felt this way. She denies any prior history of coronary artery disease or congestive heart failure. She uses only eye drops following cataract surgery. She claims that she had some alcohol prior to this, but she is not a binge drinker and nor does she drink alcohol on a regular basis. She denies any palpitations. Initial assessment in the emergency department showed a blood pressure of 115/73 and pulse of 74. A 12-lead electrocardiogram was significant for sinus rhythm with no ST and T-wave abnormalities. MRI of the brain showed areas of demyelination. She was seen by Dr. Jacobsen from Neurology service. The patient's laboratory data also revealed evidence of hyponatremia with a serum sodium of 126. She was admitted to telemetry for further evaluation and management of presyncope. Cardiology consultation was made to assess cardiac etiology. PAST MEDICAL HISTORY: None. PAST SURGICAL HISTORY: Cataract surgery. ALLERGIES: No known drug allergies. MEDICATIONS: List of medication includes prednisolone acetate eye drops. FAMILY HISTORY: No premature coronary artery disease or arrhythmogenic in the family members. There is no history of syncopal event seen in the first-degree relatives. REVIEW OF SYSTEMS: HEENT: Denies any headache, had episode of presyncope with which she complained of dizziness and lightheadedness. Denies any diplopia or blurred vision at this time. CONSTITUTIONAL: Denies any fever, chills, night sweats, or weight loss. CARDIOVASCULAR: Denies any chest pain, shortness of breath, PND, orthopnea, leg swelling, or palpitations. PULMONARY: Denies any cough, hemoptysis, or wheezing. GASTROINTESTINAL: Denies any nausea, vomiting, diarrhea, constipation, abdominal pain, or GI bleed. GENITOURINARY: Denies any hematuria, dysuria, or incontinence. NEUROLOGIC: Besides the above presyncopal events, does not have any signs of lateralization. Denies any dysarthria or dysphagia. Denies any gait imbalance. MUSCULOSKELETAL: Denies any myalgia or arthralgia. PHYSICAL EXAMINATION: VITAL SIGNS: On arrival to the emergency department, blood pressure is 115/73, pulse of 74, respirations 16, and O2 saturation 98% on room air. She was afebrile. GENERAL: The patient is a very pleasant 57-year-old lady, in no apparent respiratory distress. Alert and oriented x4. HEENT: Atraumatic and normocephalic. Pupils are equal, round, and reactive to light and accommodation. Extraocular muscles are intact. NECK: JVP less than 5 cm. No carotid bruits. Carotid upstrokes 2+ bilaterally. CARDIOVASCULAR: Normal S1 and S2. Regular rate and rhythm. No murmurs, gallops, or rubs. PMI is at fourth intercostal space at the midclavicular line. LUNGS: Clear to auscultation bilaterally. ABDOMEN: Soft, nontender, and nondistended. No hepatosplenomegaly. Positive bowel sounds. EXTREMITIES: No evidence of edema, clubbing, or cyanosis. LABORATORY AND DIAGNOSTIC DATA: Laboratory findings, WBC is 3.3, hemoglobin of 11.7, hematocrit 33.9, and platelet count is 335,000. Sodium was 126, potassium is 4.1, chloride 88, bicarbonate 25, BUN of 11, creatinine 0.7, and glucose is 118. Calcium is 8.9. Troponin I was 0. Toxicology was negative. INR was 0.9. A CT of head showed no evidence of acute intracranial hemorrhage, mass effect, or cortical edema. ASSESSMENT AND PLAN: The patient is a very pleasant 57-year-old female seen in Cardiology consultation at request of Dr. Mojica. 1. Presyncopal event with possible very short period of syncope. According to the patient's , workup of syncope including 2D echocardiography, orthostatic vitals, evaluation of carotid arteries have already been initiated. The patient is awaiting for the studies to be done. Given the patient's hyponatremia, I would like to start the patient on normal saline at 1000 mL back at 75 mL per hour. Basic metabolic panel will be done to recheck serum sodium. The patient will be placed on director cardiac and her rhythm will be continuously checked. 2. Diagnostic and therapeutic decision will be based on the result of the above study. I would believe that the patient might have been severely hypovolemic with some possible element of vasovagal, given the presence of hyponatremia as well as presence of acute in the urine, suggestive of increased calorie intake. I would like to obtain a fasting lipid panel. ruling in or out of hypovolemia as well. 3. Status post cataract surgery. I would like to thank, Dr. Mojica, for involving me in the care of this most pleasant patient. Cristi Bosch M.D. DR: SARAH JOB#: [id number] CC:
--- NOTE | 2017-09-02 09:02 | Consultation ---
DATE OF CONSULTATION: 08/31/2017 NEUROLOGIC CONSULTATION LOCATION: Emergency room. HISTORY OF PRESENT ILLNESS: This is a 57-year-old female seen in neurological consultation to evaluate an episode of transient unresponsiveness. According to the patient, who is a visitor from [place], now on vacation, she was doing fairly well, in her usual good state of health until this morning when she woke up, she was still feeling well, she went to a [employer] where she took a cup of coffee, then around 9:30, she was passing through parking lot under quite hot sun, she was back to [employer] where while standing she had a sudden onset of cold sweat, like I am going to lose consciousness, generalized weakness, and desire to lie down immediately. She was gradually eased down, stayed on the ground, and was refusing to get up. Paramedics called. So, she started to get up again, at which point, she was profusely sweating. She was pale. As she was getting up, her noted that she stiffened up. She has some tremors in her hands, she was sweating and pale. He eased her down to the ground. She appears to be awake at all time except very brief few seconds episodes when she was stiffened up. When paramedics to the scene, her systolic pressure initially was in the 60s. While in supine position, her blood pressure went up to 110. The patient was brought to emergency room. Vital signs 115/73, heart rate of 74, afebrile. The patient admitted that last night, she was at the [employer] and had some alcohol. She had one cigarette smoked prior to the event. Initial examination was unremarkable. CAT scan of the brain was obtained. This revealed mild periventricular hypoattenuation. There was a questionable 5 mm hypodensity within the right mid brain, otherwise unremarkable study. Stat MRI of the brain without contrast was obtained. This showed presence of extensive periventricular white matter hypoattenuation suggestive of a demyelination versus ischemic disease. While under observation, the patient felt much improvement. Now, she is feeling she is back to her baseline. She denied ever having episodes of loss of consciousness or seizures. There is no chest pain. No palpitation. No respiratory difficulties. She has a normal coordination, . PAST MEDICAL HISTORY: The patient has no major medical problems. She is not on any medications. Her only issue usually is cataract and lens replacement 10 years ago. Denies diabetes, hypertension, or hyperlipidemia. REVIEW OF SYSTEMS: A 14-point review of symptoms was obtained. This was negative except those in history of present illness. PHYSICAL EXAMINATION: GENERAL: A well-developed and well-nourished pleasant lady, not in acute distress. VITAL SIGNS: Her blood pressure now is stable, 131/71, heart rate of 72, and temperature 97.6 degrees. HEENT: Head is normocephalic. No evidence of trauma. Eyes, ears, and throat are clear. NECK: Supple. No meningeal signs. MUSCULOSKELETAL: Unremarkable. No deformities. Peripheral pulses 1+ and symmetric. MENTAL STATUS: The patient is fully alert and oriented x3 with no evidence of aphasia or apraxia. Cognitive function normal. CRANIAL NERVE II: Pupils both responding to light and accommodation. Extraocular movements intact. No nystagmus. CRANIAL NERVE V: Normal corneal responses. CRANIAL NERVE VII: No facial asymmetry. CRANIAL NERVE VIII: Grossly normal hearing. CRANIAL NERVES IX THROUGH XII: Within normal limits. MOTOR EXAMINATION: Normal muscle tone. Strength 5/5 in all extremities. No involuntary movement. Deep tendon reflexes 1+ and symmetric with downgoing toes on both sides. SENSORY EXAMINATION: Normal to pinprick and light touch. GAIT: Stable. IMPRESSION: 1. Syncopal episode, most likely vasovagal in origin. Rule out transient single seizure episode. 2. Mild MRI abnormality. Rule out demyelination. 3. Mild anemia. 4. Hyponatremia. DISCUSSION: The patient has no evidence of pre-existent medical issues including no transient blindness, no gait abnormalities, or other stimulants, which would suggest having multiple sclerosis. Currently, presented with a syncopal episode, which is vasovagal. This combined with a transient what seems epileptic episode. Doubt presence of chronic seizure disorder with history being negative. The patient will be recommended to be observed for the following 24 hours. Get EEG. Get MRI with contrast. Further diagnostic studies if necessary could be deferred for the following week or two when she will be back to her town and will be able to address the issue of questionable demyelination with her neurologist. Meanwhile, the patient will need a metabolic correction and maintain fall precaution. Thank you for allowing me to see this interesting patient in neurological consultation. Aubrey Luann Jacobsen DR: MARIE JOB#: [id number] CC:
[2017-09-02 09:04] LABS: ALANINE AMINOTRANSFERASE 26 U/L (12-78); ALBUMIN/GLOBULIN RATIO 0.9 (1.0-2.7); ANION GAP 9 (5-15); ASPARTATE AMINO TRANSFERASE 22 U/L (15-37); CALCIUM 8.6 MG/DL (8.5-10.1); CARBON DIOXIDE 24 MMOL/L (21-32); CHLORIDE 88 MMOL/L (98-107); CREATININE 0.6 MG/DL (0.55-1.30); GLOMERULAR FILTRATION RATE > 60 mL/min (>60); POTASSIUM 3.7 MMOL/L (3.5-5.1); SODIUM 121 MMOL/L (136-145); TOTAL PROTEIN 7.1 G/DL (6.4-8.2)
--- NOTE | 2017-09-02 10:25 | General Progress Note ---
Assessment/Plan Status: stable Assessment/Plan 1. Acute encephalopathy with possible upper extremity hyper-rigidity dysconfiguration movement. Possibility of seizure activity cannot be excluded. 2. Abnormal Brain MRI 2. Leukopenia. 3. Anemia. 4. Hyponatremia. 5. Gastrointestinal and deep vein thrombosis prophylaxes. Plan: Neuro, Cardio Notes are reviewed Nephrology is consulted Basic tests for SIADH is ordered Subjective ROS Limited/Unobtainable: No Constitutional: Reports: malaise HEENT: Reports: no symptoms Cardiovascular: Reports: no symptoms Respiratory: Reports: no symptoms Gastrointestinal/Abdominal: Reports: no symptoms Allergies: Coded Allergies: No Known Allergies (Unverified , 08/31/17) Objective Last 24 Hour Vital Signs Date Time Temp Pulse Resp B/P (MAP) Pulse Ox O2 Delivery O2 Flow Rate FiO2 09/02/17 08:10 93 09/02/17 08:05 90 09/02/17 08:00 98.1 77 18 131/58 96 Room Air 09/02/17 08:00 77 09/02/17 04:16 97.6 70 18 116/78 99 Room Air 09/02/17 04:00 65 09/02/17 00:00 97.8 70 20 144/76 96 Room Air 09/02/17 00:00 70 09/01/17 21:01 77 76 84 09/01/17 20:57 97.6 76 18 139/94 96 Room Air 09/01/17 20:00 76 09/01/17 16:10 88 09/01/17 16:05 77 09/01/17 16:00 81 09/01/17 16:00 97.7 79 18 130/72 96 Room Air 09/01/17 16:00 79 09/01/17 12:00 81 09/01/17 11:52 97.7 79 18 125/72 98 Room Air Laboratory Tests 09/02/17 06:25: White Blood Count 3.2L, Red Blood Count 4.14L, Hemoglobin 12.6, Hematocrit 36.1L , Mean Corpuscular Volume 87, Mean Corpuscular Hemoglobin 30.5, Mean Corpuscular Hemoglobin Concent 35.0, Red Cell Distribution Width 10.9L, Platelet Count 342, Mean Platelet Volume 4.1L, Neutrophils (%) (Auto) , Lymphocytes (%) (Auto) , Monocytes (%) (Auto) , Eosinophils (%) (Auto) , Basophils (%) (Auto) , Neutrophils % (Manual) [Pending], Lymphocytes % (Manual) [Pending], Platelet Estimate [Pending], Platelet Morphology [Pending], Sodium Level 121L, Potassium Level 3.7, Chloride Level 88L, Carbon Dioxide Level 24, Anion Gap 9, Blood Urea Nitrogen 6L, Creatinine 0.6, Estimat Glomerular Filtration Rate > 60, Glucose Level 94, Calcium Level 8.6, Total Bilirubin 0.5, Aspartate Amino Transf (AST/SGOT) 22, Alanine Aminotransferase (ALT/SGPT) 26, Alkaline Phosphatase 99, Total Protein 7.1, Albumin 3.4, Globulin 3.7, Albumin/ Globulin Ratio 0.9L Height (Feet): 5 Height (Inches): 6.00 Weight (Pounds): 140 General Appearance: WD/WN EENT: PERRL/EOMI Neck: non-tender Cardiovascular: normal rate Respiratory/Chest: chest wall non-tender Abdomen: soft Pelvis: normal rectal exam Extremities: non-tender Neurologic: transverse abdominal muscle nurse II-XII grossly normal Miguel Mojica MD Sep 02, 2017 10:25
[2017-09-02 10:31] LABS: BAND NEUTROPHILS % (MANUAL) 0 % (0-8); BASOPHILS % (MANUAL) 0 % (0-2); EOSINOPHILS % (MANUAL) 0 % (0-3); LYMPHOCYTES % (MANUAL) 52 % (20-45); NEUTROPHILS % (MANUAL) 40 % (45-75); PLATELET ESTIMATE ADEQUATE; PLATELET MORPHOLOGY NORMAL; TOTAL CELLS COUNTED 100
--- NOTE | 2017-09-02 11:01 | Diagnostic Imaging Report ---
APPROVED REPORT CPT Code: 99629 Vascular Symptoms Comments: Screening CAROTID (BILATERAL) - Imaging reveals no significant plaque within the right and left extracranial carotid arteries. The Doppler spectral flow analysis is within normal limits throughout the extracranial carotid arteries bilaterally. VERTEBRAL- The vertebral arteries are within normal limits.
[2017-09-02 11:48] LABS: CHOLESTEROL 192 MG/DL (< 200); CHOLESTEROL/HDL RATIO 1.7 (3.3-4.4); THYROID STIMULATING HORMONE 1.458 uiU/mL (0.360-3.740); URIC ACID 1.4 MG/DL (2.6-7.2)
[2017-09-02 12:00] VITALS: BP 129/78
--- NOTE | 2017-09-02 12:08 | Neurology Progress Note ---
Interim History Interim History ROS Limited/Unobtainable: No Objective Physical Exam Last Vital Signs Date Time Temp Pulse Resp B/P (MAP) Pulse Ox O2 Delivery O2 Flow Rate FiO2 09/02/17 12:00 97.5 71 18 129/78 99 Room Air Laboratory Tests Test 09/02/17 06:25 09/02/17 11:16 White Blood Count 3.2 K/UL (4.8-10.8) L Red Blood Count 4.14 M/UL (4.20-5.40) L Hemoglobin 12.6 G/DL (12.0-16.0) Hematocrit 36.1 % (37.0-47.0) L Mean Corpuscular Volume 87 FL (80-99) Mean Corpuscular Hemoglobin 30.5 PG (27.0-31.0) Mean Corpuscular Hemoglobin Concent 35.0 G/DL (32.0-36.0) Red Cell Distribution Width 10.9 % (11.6-14.8) L Platelet Count 342 K/UL (150-450) Mean Platelet Volume 4.1 FL (6.5-10.1) L Neutrophils (%) (Auto) % (45.0-75.0) Lymphocytes (%) (Auto) % (20.0-45.0) Monocytes (%) (Auto) % (1.0-10.0) Eosinophils (%) (Auto) % (0.0-3.0) Basophils (%) (Auto) % (0.0-2.0) Differential Total Cells Counted 100 Neutrophils % (Manual) 40 % (45-75) L Lymphocytes % (Manual) 52 % (20-45) H Monocytes % (Manual) 8 % (1-10) Eosinophils % (Manual) 0 % (0-3) Basophils % (Manual) 0 % (0-2) Band Neutrophils 0 % (0-8) Platelet Estimate Adequate Platelet Morphology Normal Red Blood Cell Morphology Normal Sodium Level 121 MMOL/L (136-145) L Potassium Level 3.7 MMOL/L (3.5-5.1) Chloride Level 88 MMOL/L (98-107) L Carbon Dioxide Level 24 MMOL/L (21-32) Anion Gap 9 (5-15) Blood Urea Nitrogen 6 mg/dL (7-18) L Creatinine 0.6 MG/DL (0.55-1.30) Estimat Glomerular Filtration Rate > 60 mL/min (>60) Glucose Level 94 MG/DL (74-106) Osmolality Pending Uric Acid 1.4 MG/DL (2.6-7.2) L Calcium Level 8.6 MG/DL (8.5-10.1) Total Bilirubin 0.5 MG/DL (0.2-1.0) Aspartate Amino Transf (AST/SGOT) 22 U/L (15-37) Alanine Aminotransferase (ALT/SGPT) 26 U/L (12-78) Alkaline Phosphatase 99 U/L (46-116) Total Protein 7.1 G/DL (6.4-8.2) Albumin 3.4 G/DL (3.4-5.0) Globulin 3.7 g/dL Albumin/Globulin Ratio 0.9 (1.0-2.7) L Triglycerides Level 66 MG/DL (0-200) Cholesterol Level 192 MG/DL (< 200) LDL Cholesterol 83 mg/dL (<100) HDL Cholesterol 113 MG/DL (40-60) H Cholesterol/HDL Ratio 1.7 (3.3-4.4) L Thyroid Stimulating Hormone (TSH) 1.458 uiU/mL (0.360-3.740) Free Thyroxine Pending Urine Osmolality Pending Urine Random Sodium Pending Impression/Recommendations Problems: (1) syncope vaso vagal,with brief epileptic transient. (2) Hyponatremia (3) Demyelinating disease of central nervous system, unspecified Status: stable Recommendations # [id number] neuro stable EEG nl no clinical evidense of neurodeficit. Na correction BRANDIE HOSKINS Sep 02, 2017 12:08
--- NOTE | 2017-09-02 12:31 | Consultation ---
Consult Note Consult Note asked to eval for low Na Patient is a a 57-year-old female who presented after increased generalized weakness. Patient had been noted to have a loss of consciousness associated with some tonic-clonic motor activity. Patient had promontory dizziness and lightheadedness. Patient had been feeling hot immediately prior to passing out. Patient was noted to have recent travel from [place]. She denies any leg pain or swelling. She reports taking eyedrops for cataract surgery. She denies any recent fever. She states she was at a [employer] party last night and had some alcohol. She denies prior syncopal episodes. 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
--- NOTE | 2017-09-02 12:34 | Diagnostic Imaging Report ---
Indication: Dyspnea Comparison: None 2 views of the chest obtained. Prominence of the right hilum probably vascular in nature. Heart size is normal. Lungs are clear. Bones are osteopenic. Impression: Prominence right hilum probably vascular in nature. Suggest comparison to prior studies. If this is not possible suggest followup and/or CT.
[2017-09-02 12:49] LABS: THYROID STIMULATING HORMONE 1.453 uiU/mL (0.360-3.740)
[2017-09-02] MEDS ORDERED: NaCl 3% 500ml 500 ML IV ONE (13:00)
[2017-09-02 14:04] LABS: ANION GAP 9 (5-15); CALCIUM 8.9 MG/DL (8.5-10.1); CARBON DIOXIDE 23 MMOL/L (21-32); CHLORIDE 88 MMOL/L (98-107); CREATININE 0.5 MG/DL (0.55-1.30); GLOMERULAR FILTRATION RATE > 60 mL/min (>60); SODIUM 120 MMOL/L (136-145)
[2017-09-02 16:21] VITALS: BP 127/71
[2017-09-02 20:00] VITALS: BP 116/69
[2017-09-03] VITALS: BP 121/70
[2017-09-03 04:30] VITALS: BP 121/70
--- NOTE | 2017-09-03 06:45 | Electroencephalogram ---
DATE OF PROCEDURE: 09/01/2017 REQUESTING PHYSICIAN: Miguel Mojica M.D. PROCEDURE PERFORMED: Electroencephalography. INDICATION: This is a 57-year-old female with a history of transient loss of consciousness, resembling seizure activities. TECHNIQUE: EEG was done using 18 electrodes placed on scalp to scalp, scalp to ear montages according to 10/20 [employer] System. During the recording, the patient was described as as awake, drowsy, or asleep, but good cooperation with normal mentality. Activation procedures included hyperventilation, eye opening, and eye closure. Most wakeful portions of recording background activity consists of well-regulated 8 to 9 cycles per second alpha activity with good response to physiological stimulation. Hyperventilation slow-wave activities. As recording progressed, there was further disorganization and attenuation of background in a theta range with appearance of generalized K complexes. There is no asymmetry from [id number], no spike or wave activities. IMPRESSION: Normal awake stage 1-2 sleep EEG with hyperventilation. COMMENT: Absence of paroxysmal event on a single recording does not rule out seizure disorder. Aubrey Jacobsen M.D. DR: Viktoriya JOB#: [id number] CC:
[2017-09-03 08:00] VITALS: BP 120/70
[2017-09-03 08:00] LABS: MEAN CORPUSCULAR HEMOGLOBIN 30.5 PG (27.0-31.0); MEAN CORPUSCULAR HGB CONC 34.9 G/DL (32.0-36.0); MEAN CORPUSCULAR VOLUME 87 FL (80-99); MEAN PLATELET VOLUME 4.5 FL (6.5-10.1); PLATELET COUNT 382 K/UL (150-450); RED BLOOD COUNT 4.48 M/UL (4.20-5.40); WHITE BLOOD COUNT 2.6 K/UL (4.8-10.8)
--- NOTE | 2017-09-03 08:22 | Cardiology Progress Note ---
Assessment/Plan Assessment/Plan 1. Pre-syncope/syncope, likely hypovolemia, echo shows normal LVEF, no e/o cardiac arrhythmias so far. 2. Leukopenia with relative lymphocytosis, ?viral disease. 3. Hyponatremia, ?SIADH Subjective Subjective Sinus rhythm at 95. Objective Last 24 Hour Vital Signs Date Time Temp Pulse Resp B/P (MAP) Pulse Ox O2 Delivery O2 Flow Rate FiO2 09/03/17 04:30 97.0 67 20 121/70 97 Room Air 09/03/17 00:00 97.0 67 20 121/70 97 Room Air 09/02/17 20:00 65 77 77 09/02/17 20:00 97.9 65 20 116/69 95 Room Air 09/02/17 16:21 98.1 74 18 127/71 96 Room Air 09/02/17 16:00 86 09/02/17 12:00 97.5 71 18 129/78 99 Room Air 09/02/17 12:00 71 2D Echo: LVEF 55-60%, No other abnormalities. Laboratory Tests Test 09/02/17 11:16 09/02/17 13:27 09/03/17 06:55 Urine Osmolality 572 mOsm/kg (429-449) H Urine Random Sodium 94 MEQ/L (20-110) Sodium Level 120 MMOL/L (136-145) L Pending Potassium Level 4.0 MMOL/L (3.5-5.1) Pending Chloride Level 88 MMOL/L (98-107) L Pending Carbon Dioxide Level 23 MMOL/L (21-32) Pending Anion Gap 9 (5-15) Blood Urea Nitrogen 7 mg/dL (7-18) Pending Creatinine 0.5 MG/DL (0.55-1.30) L Pending Estimat Glomerular Filtration Rate > 60 mL/min (>60) Pending Glucose Level 116 MG/DL (74-106) H Pending Osmolality 261 mOsm/kg (297-317) L Pending Calcium Level 8.9 MG/DL (8.5-10.1) Pending Cortisol Pending White Blood Count 2.6 K/UL (4.8-10.8) L Red Blood Count 4.48 M/UL (4.20-5.40) Hemoglobin 13.7 G/DL (12.0-16.0) Hematocrit 39.2 % (37.0-47.0) Mean Corpuscular Volume 87 FL (80-99) Mean Corpuscular Hemoglobin 30.5 PG (27.0-31.0) Mean Corpuscular Hemoglobin Concent 34.9 G/DL (32.0-36.0) Red Cell Distribution Width 11.0 % (11.6-14.8) L Platelet Count 382 K/UL (150-450) Mean Platelet Volume 4.5 FL (6.5-10.1) L Neutrophils (%) (Auto) % (45.0-75.0) Lymphocytes (%) (Auto) % (20.0-45.0) Monocytes (%) (Auto) % (1.0-10.0) Eosinophils (%) (Auto) % (0.0-3.0) Basophils (%) (Auto) % (0.0-2.0) Neutrophils % (Manual) Pending Lymphocytes % (Manual) Pending Platelet Estimate Pending Platelet Morphology Pending Uric Acid Pending Phosphorus Level Pending Magnesium Level Pending Total Bilirubin Pending Aspartate Amino Transf (AST/SGOT) Pending Alanine Aminotransferase (ALT/SGPT) Pending Alkaline Phosphatase Pending C-Reactive Protein, Quantitative Pending Pro-B-Type Natriuretic Peptide Pending Total Protein Pending Albumin Pending Globulin Pending Microbiology Date/Time Source Procedure Growth Status 08/31/17 10:30 Blood Blood Culture - Preliminary NO GROWTH AFTER 48 HOURS Resulted 08/31/17 10:15 Blood Blood Culture - Preliminary NO GROWTH AFTER 48 HOURS Resulted Objective HEENT: Atraumatic, normocephalic, PERRLA, EOMI Neck: No JVD, no carotid bruit, carotid upstroke 2+ B/L Cardiovascular: Regular rate, rhythm, normal S1S2, no murmurs, gallops or rubs. Respiratory/Chest: lungs clear Abdomen: soft, non-tender, non-distended, no HSM, normal BS Extremities: no edema, clubbing or cyanosis. CHARLIE COVARRUBIAS Sep 03, 2017 08:22
[2017-09-03 08:36] LABS: ALANINE AMINOTRANSFERASE 28 U/L (12-78); ANION GAP 10 (5-15); ASPARTATE AMINO TRANSFERASE 21 U/L (15-37); CALCIUM 9.2 MG/DL (8.5-10.1); CARBON DIOXIDE 24 MMOL/L (21-32); CHLORIDE 95 MMOL/L (98-107); CREATININE 0.7 MG/DL (0.55-1.30); GLOMERULAR FILTRATION RATE > 60 mL/min (>60); POTASSIUM 4.3 MMOL/L (3.5-5.1); SODIUM 129 MMOL/L (136-145)
[2017-09-03] MEDS: Heparin 5000 units/ml inj SUBQ SCH (09:16)
[2017-09-03 09:34] LABS: OSMOLALITY SERUM 275 mOsm/kg (297-317)
[2017-09-03 10:54] LABS: MAGNESIUM 1.9 MG/DL (1.8-2.4); PHOSPHORUS 4.5 MG/DL (2.5-4.9); URIC ACID 1.7 MG/DL (2.6-7.2)
[2017-09-03 10:58] LABS: CRP QUANT < 0.4 mg/dL (0.00-0.90)
--- NOTE | 2017-09-03 11:01 | General Progress Note ---
Assessment/Plan Status: stable Assessment/Plan 1. Acute encephalopathy with possible upper extremity hyper-rigidity dysconfiguration movement. Possibility of seizure activity cannot be excluded. 2. Abnormal Brain MRI 2. Leukopenia. 3. Anemia. 4. Hyponatremia. 5. Gastrointestinal and deep vein thrombosis prophylaxes. 6. SIADH Plan: Neuro, Cardio Notes are reviewed Nephrology notes reviewed Medically stable for outpatient followup Subjective ROS Limited/Unobtainable: No Allergies: Coded Allergies: No Known Allergies (Unverified , 08/31/17) Objective Last 24 Hour Vital Signs Date Time Temp Pulse Resp B/P (MAP) Pulse Ox O2 Delivery O2 Flow Rate FiO2 09/03/17 08:10 108 09/03/17 08:05 93 09/03/17 08:00 81 09/03/17 08:00 97.7 81 18 120/70 95 Room Air 09/03/17 04:30 97.0 67 20 121/70 97 Room Air 09/03/17 04:00 78 09/03/17 00:00 97.0 67 20 121/70 97 Room Air 09/02/17 20:00 65 77 77 09/02/17 20:00 97.9 65 20 116/69 95 Room Air 09/02/17 16:21 98.1 74 18 127/71 96 Room Air 09/02/17 16:00 86 09/02/17 12:00 97.5 71 18 129/78 99 Room Air 09/02/17 12:00 71 Intake and Output 09/03/17 09/04/17 19:00 07:00 Intake Total 120 ml Balance 120 ml Intake Oral 120 ml Laboratory Tests 09/02/17 11:16: Urine Osmolality 572H, Urine Random Sodium 94 09/02/17 13:27: Sodium Level 120L, Potassium Level 4.0, Chloride Level 88L, Carbon Dioxide Level 23, Anion Gap 9, Blood Urea Nitrogen 7, Creatinine 0.5L, Estimat Glomerular Filtration Rate > 60, Glucose Level 116H, Osmolality 261L, Calcium Level 8.9, Cortisol 12.3 09/03/17 06:55: Sodium Level 129L, Potassium Level 4.3, Chloride Level 95L, Carbon Dioxide Level 24, Anion Gap 10, Blood Urea Nitrogen 8, Creatinine 0.7, Estimat Glomerular Filtration Rate > 60, Glucose Level 91, Osmolality 275L, Calcium Level 9.2, White Blood Count 2.6L, Red Blood Count 4.48, Hemoglobin 13.7, Hematocrit 39.2, Mean Corpuscular Volume 87, Mean Corpuscular Hemoglobin 30.5, Mean Corpuscular Hemoglobin Concent 34.9, Red Cell Distribution Width 11.0L, Platelet Count 382, Mean Platelet Volume 4.5L, Neutrophils (%) (Auto) , Lymphocytes (%) (Auto) , Monocytes (%) (Auto) , Eosinophils (%) (Auto) , Basophils (%) (Auto) , Neutrophils % (Manual) [Pending], Lymphocytes % (Manual) [Pending], Platelet Estimate [Pending], Platelet Morphology [Pending], Uric Acid 1.7L, Phosphorus Level 4.5, Magnesium Level 1.9, Total Bilirubin 0.4, Aspartate Amino Transf (AST/SGOT) 21, Alanine Aminotransferase (ALT/SGPT) 28, Alkaline Phosphatase 106, C-Reactive Protein, Quantitative < 0.4, Pro-B-Type Natriuretic Peptide 98, Total Protein 8.0, Albumin 3.9, Globulin 4.1, Albumin/ Globulin Ratio 1.0 Height (Feet): 5 Height (Inches): 6.00 Weight (Pounds): 146 General Appearance: no apparent distress EENT: PERRL/EOMI Neck: supple Cardiovascular: normal rate Respiratory/Chest: lungs clear Abdomen: soft Extremities: non-tender Neurologic: loss prevention coordinator II-XII grossly normal Objective comfortable Miguel Mojica MD Sep 03, 2017 11:01
--- NOTE | 2017-09-03 11:51 | General Progress Note ---
Assessment/Plan Status: stable Status Narrative Na 129 Assessment/Plan SIADH Ok to dc with fluid restriction and follow up lytes in 2 days discussed with patient and Dr Mojica Subjective ROS Limited/Unobtainable: No Allergies: Coded Allergies: No Known Allergies (Unverified , 08/31/17) Objective Last 24 Hour Vital Signs Date Time Temp Pulse Resp B/P (MAP) Pulse Ox O2 Delivery O2 Flow Rate FiO2 09/03/17 08:10 108 09/03/17 08:05 93 09/03/17 08:00 82 09/03/17 08:00 81 09/03/17 08:00 97.7 81 18 120/70 95 Room Air 09/03/17 04:30 97.0 67 20 121/70 97 Room Air 09/03/17 04:00 78 09/03/17 00:00 97.0 67 20 121/70 97 Room Air 09/02/17 20:00 65 77 77 09/02/17 20:00 97.9 65 20 116/69 95 Room Air 09/02/17 16:21 98.1 74 18 127/71 96 Room Air 09/02/17 16:00 86 09/02/17 12:00 97.5 71 18 129/78 99 Room Air 09/02/17 12:00 71 Intake and Output 09/03/17 09/04/17 19:00 07:00 Intake Total 120 ml Balance 120 ml Intake Oral 120 ml Laboratory Tests 09/02/17 13:27: Sodium Level 120L, Potassium Level 4.0, Chloride Level 88L, Carbon Dioxide Level 23, Anion Gap 9, Blood Urea Nitrogen 7, Creatinine 0.5L, Estimat Glomerular Filtration Rate > 60, Glucose Level 116H, Osmolality 261L, Calcium Level 8.9, Cortisol 12.3 09/03/17 06:55: Sodium Level 129L, Potassium Level 4.3, Chloride Level 95L, Carbon Dioxide Level 24, Anion Gap 10, Blood Urea Nitrogen 8, Creatinine 0.7, Estimat Glomerular Filtration Rate > 60, Glucose Level 91, Osmolality 275L, Calcium Level 9.2, White Blood Count 2.6L, Red Blood Count 4.48, Hemoglobin 13.7, Hematocrit 39.2, Mean Corpuscular Volume 87, Mean Corpuscular Hemoglobin 30.5, Mean Corpuscular Hemoglobin Concent 34.9, Red Cell Distribution Width 11.0L, Platelet Count 382, Mean Platelet Volume 4.5L, Neutrophils (%) (Auto) , Lymphocytes (%) (Auto) , Monocytes (%) (Auto) , Eosinophils (%) (Auto) , Basophils (%) (Auto) , Neutrophils % (Manual) [Pending], Lymphocytes % (Manual) [Pending], Platelet Estimate [Pending], Platelet Morphology [Pending], Uric Acid 1.7L, Phosphorus Level 4.5, Magnesium Level 1.9, Total Bilirubin 0.4, Aspartate Amino Transf (AST/SGOT) 21, Alanine Aminotransferase (ALT/SGPT) 28, Alkaline Phosphatase 106, C-Reactive Protein, Quantitative < 0.4, Pro-B-Type Natriuretic Peptide 98, Total Protein 8.0, Albumin 3.9, Globulin 4.1, Albumin/ Globulin Ratio 1.0 Height (Feet): 5 Height (Inches): 6.00 Weight (Pounds): 146 General Appearance: no apparent distress Neurologic: other - alert and oriented Objective no edema ALEYDA BELL Sep 03, 2017 11:51
[2017-09-03 11:53] LABS: BAND NEUTROPHILS % (MANUAL) 0 % (0-8); BASOPHILS % (MANUAL) 1 % (0-2); EOSINOPHILS % (MANUAL) 0 % (0-3); LYMPHOCYTES % (MANUAL) 47 % (20-45); NEUTROPHILS % (MANUAL) 46 % (45-75); PLATELET ESTIMATE ADEQUATE; PLATELET MORPHOLOGY NORMAL; TOTAL CELLS COUNTED 100
[2017-09-03 12:48] VITALS: BP 111/62
--- NOTE | 2017-09-05 09:42 | Diagnostic Imaging Report ---
APPROVED REPORT CPT Code: 98150 Present Symptoms Comments: R/O DVT BILATERAL: Imaging reveals a patent deep venous system bilaterally. There is no evidence of thrombus within the femoral, popliteal or tibial segments. The greater saphenous veins are also within normal limits. Doppler indicates normal spontaneous flow within these segments.
--- NOTE | 2017-09-05 23:09 | Cardiology Report ---
APPROVED REPORT EKG Measurement Heart [id number] Normal sinus rhythm Normal ECG
--- NOTE | 2017-09-06 01:01 | Discharge Summary 2 SIG ---
DATE OF ADMISSION: 08/31/2017 DATE OF DISCHARGE: 09/03/2017 CONSULTANTS: 1. Cristi Bosch M.D. 2. Aubrey Jacobsen M.D. 3. Jf Salguero M.D. BRIEF HOSPITAL COURSE: The patient is a 57-year-old female with unremarkable past medical history, reportedly had a brief episode of lightheadedness with no concrete reported total loss of consciousness. There was no unusual activity noted nor any twitching movement. There was no reported loss of control of urination or bowel. Denies any head trauma. On evaluation at ED, head CT showed no evidence of acute intracranial hemorrhage, mass effect, or edema. There was a questionable 5 mm hypodensity in the right mid brain. MRI was done and showed no acute intracranial abnormality. There was [id number] periventricular and subcortical T2 signal, possibility of demyelinating disease. Blood work showed hyponatremia. EKG was in normal sinus rhythm. She was admitted for acute encephalopathy, possibility of seizure. She underwent neurologic evaluation and was assessed to have syncopal episode, most likely vasovagal in origin. There was no evidence of pre-existent medical issues including no transient blindness, no gait abnormalities, or other stimulants that would suggest multiple sclerosis. There seemed to be a transient, but questionable epileptic episode. EEG done showed normal awake stage 1 to 2 sleep cycle. A 12-lead echocardiogram was significant for sinus rhythm with no ST to T-wave abnormalities. Echocardiogram showed left ventricular ejection fraction 55% to 60% with no aortic regurgitation. Carotid ultrasound showed no significant plaque.She was noted with low sodium. She was worked up for SIADH. She was given 3% saline and Lasix and was placed on hold. She was placed on fluid restrictions. There was improvement in sodium level. She was eventually discharged home, would need a check of electrolytes in two days. FINAL DIAGNOSES: 1. Acute metabolic encephalopathy. 2. Hyponatremia. 3. Anemia. 4. Syndrome of inappropriate secretion of antidiuretic hormone. 5. Leukopenia. 6. Abnormal brain MRI. 7. Syncope, possibly vasovagal with brief epileptic event, transient. DISCHARGE DISPOSITION: The patient was discharged home. FOLLOWUP: The patient was advised to follow up, will need to check electrolytes in two days. Miguel Mojica M.D. I have been assigned to dictate discharge summary on this account and I was not involved in the patient's management. Kelsea Jones N.P. DR: OLAF JOB#: [id number] CC: [id number]
== END 2017-09-03 15:40 | disposition home or self-care (01) | DRG 643 ==
LOC: EDBD 10:10 → EMR 11:22 → EDBEDREQ 17:20 → 2E 17:20 → EDBEDREQ 17:36 → 2E 18:28
PROC: 4A00X4Z Measurement of Central Nervous Electrical Activity, External Approach (ICD-10-PCS; principal; 2017-09-01)
DX: E22.2 Syndrome of inappropriate secretion of antidiuretic hormone (principal); G93.41 Metabolic encephalopathy; G37.9 Demyelinating disease of central nervous system, unspecified; D72.819 Decreased white blood cell count, unspecified; D64.9 Anemia, unspecified; R90.89 Other abnormal findings on diagnostic imaging of central nervous system
CPT/HCPCS: 36415; 70450; 70553; 71020; 80048; 80053; 80061; 80300; 81001; 82533; 83036; 83615; 83735; 83880; 83930; 83935; 84100; 84300; 84439; 84443; 84484; 84550; 85007; 85025; 85379; 85610; 85651; 85730; 86140; 86703; 87040; 93005; 93306; 93880; 93970; 95819; 99285; A9585; J8499